=== PATIENT | female | born 1970 | race Caucasian/White ===

== ENCOUNTER 2023-04-05 01:53 | Emergency (ER) | payer BC, SELFPAY ==
[2023-04-05] VITALS (8 sets, daily range): BP systolic 120–158; BP diastolic 57–115; PULSE 52–88; RESP 14–26; TEMP 36.3–36.6; O2SAT 96–100
--- NOTE | ~2023-04-05 | CT_ITS ---
CT of the Abdomen and Pelvis: Indication: Abdominal pain Technique: 2.5 mm axial scans were obtained through the abdomen and pelvis following intravenous adm inistration of 100 cc of Omnipaque 350. Dose reduction technique was used on this scan by utilizing a utomated exposure control and iterative reconstruction technique. The dose-length product (DLP) was 1 720.43 mGy-cm. Findings: Scans through the lung bases are unremarkable. The liver, spleen, pancreas, gallbladder, adrenals and kidneys are within normal limits. No evidence of aortic aneurysm. No lymphadenopathy. There is evidence of prior gastric bypass surgery. There is dilatation of the gastrojejunostomy loop with transition point which may be just near the distal Yanira-en-Y anastomosis. Images through the pelvis were performed. Urinary bladder unremarkable. No adnexal mass seen. No asci melissa. Impression: Prior gastric bypass surgery. There is obstruction of the gastrojejunostomy loop, with transition poi nt which appears to be near the distal Yanira-en-Y anastomosis. Reviewed, dictated and finalized at location . Impression: Prior gastric bypass surgery. There is obstruction of the gastrojejunostomy loo p, with transition point which appears to be near the distal Yanira-en-Y anastomo sis.
--- NOTE | 2023-04-05 02:09 | ECG_ITS ---
Measurements Intervals [place] Rate: 65 P: 19 MS: 171 QRS: -4 QRSD: 94 T: 7 QT: 409 QTc: 427 Interpretive Statements SINUS RHYTHM NO PREVIOUS ECG AVAILABLE FOR COMPARISON Electronically Signed On 04-05-2023 19:51:59 CDT by Haydee Tamayo M.D.
[2023-04-05] MEDS: ONDANSETRON INJ 4 MG/2 ML VIAL IV PUSH (02:20)
[2023-04-05] MEDS: HYDROmorphone HCL INJ (*CRX) 1 MG/ML SYR IV PUSH ×3 (02:22→09:25)
[2023-04-05 02:26] LABS: Basophils Absolute Auto 0.1 K/mm3 (0.0-0.1); Eosinophils Absolute Auto 0.2 K/mm3 (0-0.3); Eosinophils Percent Auto 2.8 % (0-4.4); Hematocrit 39.5 % (37.0-47.0); Hemoglobin 12.2 g/dL (12.0-15.0); Immature Granulocyte Absolute 0.01 K/mm3 (0.00-0.031); Immature Granulocyte Percent A 0.2 % (0-0.5); Lymphocytes Absolute Auto 1.34 K/mm3 (0.9-3.2); Lymphocytes Percent Auto 22.3 % (18.3-44.2); Mean Corpuscular HGB Conc 30.9 g/dl (32-36); Mean Corpuscular Hemoglobin 24.8 pg (26-34); Mean Corpuscular Volume 80.4 fl (80-100); Mean Platelet Volume 10.9 fl (7.4-10.4); Monocytes Absolute Auto 0.6 K/mm3 (0.1-0.6); Monocytes Percent Auto 10.5 % (2.6-8.5); Neutrophils Absolute Auto 3.8 K/mm3 (1.3-6.7); Neutrophils Percent Auto 63.2 % (45.5-73.1); Platelet Count Result 279 k/mm3 (150-375); Red Blood Count 4.91 M/mm3 (4.2-5.4); Red Cell Distribution Width 15.5 % (11.5-14.5)
[2023-04-05 02:35] LABS: Lactic Acid Reflex 1.6 mmol/L (0.7-2.0)
[2023-04-05 02:37] LABS: Alanine Aminotransferase 19 U/L (6-35); Albumin Level 4.6 g/dL (3.5-5.1); Alkaline Phosphatase 88 U/L (38-126); Anion Gap 9 mmol/L (8-16); Aspartate Amino Transferase 26 U/L (14-36); Bilirubin,Total 0.6 mg/dL (0.2-1.3); Blood Urea Nitrogen 14 mg/dL (7-17); Calcium 9.8 mg/dL (8.4-10.2); Carbon Dioxide 23 mmol/L (22-30); Chloride 107 mmol/L (98-107); Estimated CRCL calculation 136 ml/min; Estimated Glomerular Filt Rate > 60; Glucose 122 mg/dL (65-110); Lipase 92 U/L (23-300); Sodium 139 mmol/L (137-145)
--- NOTE | 2023-04-05 02:39 | ED.ABDPAIN ---
HPI - Abdominal Pain General Chief Complaint: Abdominal Pain <SOPHIE Seo Last Filed: 04/05/23 03:34> Stated Complaint: upper abd pain <SOPHIE Seo Last Filed: 04/05/23 03:34> Time Seen by Provider: 04/05/23 02:03 <SOPHIE Seo Last Filed: 04/05/23 03:34> Source: patient <SOPHIE Seo Last Filed: 04/05/23 03:34> Mode of arrival: ambulatory <SOPHIE Seo Last Filed: 04/05/23 03:34> Limitations: no limitations <SOPHIE Seo Last Filed: 04/05/23 03:34> History of Present Illness HPI narrative: Patient is a 52-year-old female, with past medical history of gastric bypass surgery, who presents to the ED with report of upper abdominal pain. Patient reports pain began suddenly around 2 PM yesterday afternoon. Pain has been constant, but intermittently more severe and stabbing. Pain worse with eating or drinking. Patient tried taking Tums without relief. She reports nausea and vomiting and states she has been unable to keep down any food or drink. She does report 3 episodes of loose stool today, denies rectal bleeding or melena. Denies fevers. Denies urinary symptoms. Denies past medical history of pancreatitis or kidney stones. She does still have a gallbladder. Denies chest pain or shortness of breath. <SOPHIE Seo Last Filed: 04/05/23 03:34> Related Data Allergies/Adverse Reactions: Allergies Allergy/AdvReac Type Severity Reaction Status Date / Time Penicillins Allergy Unknown Verified 07/30/21 16:55 <SOPHIE Seo Last Filed: 04/05/23 03:34> Review of Systems Review of Systems: CONSTITUTIONAL: Denies fever, chills, or sweats. CARDIOVASCULAR: Denies chest pain. RESPIRATORY: Denies cough or dyspnea. GASTROINTESTINAL: See HPI. GENITOURINARY: Denies dysuria or hematuria. SKIN: Denies rash or itching. MUSCULOSKELETAL: Denies back pain, joint pain, or myalgia. <Catie Bunn PA-C - Last Filed: 04/05/23 03:34> All systems reviewed & are unremarkable except as noted in HPI and below <Catie Bunn PA-C - Last Filed: 04/05/23 03:34> [facility] Family History Family History: Family History Other Diabetes mellitus <Catie Bunn PA-C - Last Filed: 04/05/23 03:34> Social History Social History: Social History Alcohol intake: never <Catie Bunn PA-C - Last Filed: 04/05/23 03:34> Exam Narrative: GENERAL: Uncomfortable appearing, morbidly obese with BMI of 51.7, moderate distress d/t pain. Writhing around on ED stretcher, unable to sit still. HEAD: Normocephalic, atraumatic. NECK: Supple. No adenopathy, no masses. RESPIRATORY: Airway patent, respirations nonlabored. Clear to auscultation bilaterally, no rales, rhonchi, wheezing. CARDIOVASCULAR: Regular rate and rhythm without murmurs, rubs, or gallops. Peripheral pulses 2+ and equal bilaterally. ABDOMINAL: Soft, diffuse tenderness throughout upper abdomen, voluntary guarding. Nondistended, no hepatosplenomegaly. Normoactive BS. MUSCULOSKELETAL: Moves all extremities. Strength/ROM intact without gross deformities. SKIN: Warm, dry, normal color. No rashes. NEURO: A&O X3. Speech clear. Cranial nerves II-XII grossly intact. Steady gait. No ataxic movements. PSYCHIATRIC: Anxious, tearful. Normal interaction. <Catie Bunn PA-C - Last Filed: 04/05/23 03:34> Course DIETARY DIRECTOR/PA Physician Supervision This visit was performed by both the physician and an APC. I performed all aspects of the MDM as documented <Brady Lujan MD - Last Filed: 04/05/23 07:00> Reevaluation(s) Reevaluation #1: Bed did become available at the outside hospital. Transport should arrive approximate 1120. Patient is resting comfortably at
[2023-04-05 02:48] LABS: Troponin I < 0.012 ng/mL (0.000-0.034)
[2023-04-05] MEDS: SODIUM CHLORIDE 0.9% IV 1,000 ML 999 ML IV CONT (03:10)
[2023-04-05] MEDS: PANTOPRAZOLE SODIUM IV 40 MG VIAL IV PUSH (03:10)
[2023-04-05 04:31] LABS: Add Urine Microscopic? YES; Appearance Urine Cloudy (Clear); Bacteria Urine 2+ /hpf; Bilirubin Urine Negative (Negative); Blood Urine Negative (Negative); Color Urine Yellow (Yellow); Glucose Urine UA Negative (Negative); Ketones Urine Negative (Negative); Leukocyte Esterase Ur Negative LEU/UL (Negative); Need Manual Microscopic Reviewed; Nitrate Urine Negative (Negative); Non Pathogenic Casts 0-2; Protein Urine Negative (Negative); RBC Urine 0-2 /hpf (0-2); Specific Grav Ur 1.073 (1.001-1.035); Squamous Epithelial Cell Urine Moderate /hpf (Few); WBC Urine 0-5 /hpf
--- NOTE | 2023-04-05 07:29 | PC.NURSE ---
Assumed care of pt. Pt resting with spouse at bedside. Denies nausea/vomiting
--- NOTE | 2023-04-05 09:28 | PC.NURSE ---
Pt c/o abd pain Dr. Kumar informed. Pt medicated per order
--- NOTE | 2023-04-05 10:29 | PC.NURSE ---
[facility] called. Xi assigned #[id number]. Pt informed. Transportation being set up by community leader
== END 2023-04-05 11:53 | disposition short-term general hospital (02) ==
PROVIDERS: Physician Assistant; Emergency Provider Emergency Medicine
DX: R10.10 Upper abdominal pain, unspecified (principal); K46.9 Unspecified abdominal hernia without obstruction or gangrene; K91.30 Postprocedural intestinal obstruction, unspecified as to partial versus complete
CPT/HCPCS: 36415; 74177; 80053; 81001; 83605; 83690; 84484; 85025; 93005; 96361; 96374; 96375; 96376; 99285; C9113; J1170; J2405; J7030; Q9967